=== PATIENT | male | born 1970 | race Two or more races ===

== ENCOUNTER 2022-02-01 12:36 | Emergency (ER) | payer MEDICAID, OTHER ==
[~2022-02-01] VITALS: Ht 182.9 cm; Wt 104.3 kg
[2022-02-01 12:45] VITALS: BP 127/80
--- NOTE | 2022-02-01 12:49 | NUR ---
PT AMBULATED TO LOBBY
--- NOTE | 2022-02-01 13:00 | NUR ---
51/M WALKED IN FOR COUGH ONSET 4 DAYS. DENIES FEVER OR PAIN AT THIS TIME. AAO4, AMBULATORY, VITALS STABLE.
--- NOTE | 2022-02-01 13:30 | NUR ---
PT CALLED X2 AT [facility]. NO ANSWER. PT LEFT BEFORE DC INSTRUCTIONS. NO IV PLACED.
== END 2022-02-01 13:30 | disposition home or self-care (01) ==
LOC: MED 12:36
DX: J06.9 Acute upper respiratory infection, unspecified (principal); E78.00 Pure hypercholesterolemia, unspecified; E03.9 Hypothyroidism, unspecified
CPT/HCPCS: 99281

== ENCOUNTER 2023-06-19 17:11 | Emergency (ER) | payer OTHER ==
[~2023-06-19] VITALS: Ht 182.9 cm; Wt 107.6 kg
[2023-06-19 17:15] VITALS: BP 150/96; PULSE 112; RESP 18; TEMP 98; O2SAT 95
[2023-06-19 17:53] LABS: BASOPHILS # (AUTO) 0.1 K/uL (0.00-0.22); BASOPHILS % (AUTO) 0.5 % (0.0-2.0); EOSINOPHILS # (AUTO) 0.1 K/uL (0-0.4); EOSINOPHILS % (AUTO) 0.4 % (0.0-4.0); HEMATOCRIT 44.5 % (36-52); HEMOGLOBIN 15.2 g/dL (12.0-18.0); LYMPHOCYTES # (AUTO) 1.1 K/uL (2.0-11.5); LYMPHOCYTES % (AUTO) 6.7 % (20.5-51.1); MEAN CORPUSCULAR HEMOGLOBIN 31 pg (27-31); MEAN CORPUSCULAR HGB CONC 34 g/dL (33-37); MEAN CORPUSCULAR VOLUME 91.4 fL (80-94); MONOCYTES # (AUTO) 0.8 K/uL (0.8-1.0); MONOCYTES % (AUTO) 4.5 % (1.7-9.3); NEUTROPHILS # (AUTO) 14.7 K/uL (1.8-7.7); NEUTROPHILS % (AUTO) 87.9 % (42.2-75.2); PLATELET COUNT (AUTO) 227 K/uL (140-450); RED BLOOD CELL COUNT(AUTO) 4.86 MIL/uL (4.20-6.10); RED CELL DISTRIBUTION WIDTH 13.2 % (11.6-13.7); WHITE BLOOD COUNT (AUTO) 16.8 K/uL (4.8-10.8)
[2023-06-19 18:06] LABS: ANION GAP 14.4 (8-16); CARBON DIOXIDE 27.1 mmol/L (21-32); CREATININE 1.3 mg/dL (0.6-1.3); POTASSIUM 3.5 mmol/L (3.5-5.1)
[2023-06-19 18:32] LABS: ALANINE AMINOTRANSFERASE 60 U/L (12-78); ALKALINE PHOSPHATASE 96 U/L (50-136); ASPARTATE AMINOTRANSFERASE 37 U/L (15-37); BILIRUBIN,DIRECT 0.2 mg/dL (0.0-0.3); THYROID STIMULATING HORMONE 1.51 uIU/mL (0.34-3.74); TOTAL PROTEIN, SERUM 7.9 g/dL (6.4-8.2)
[2023-06-19] MEDS ORDERED: AZIT250T4 PO (19:15)
[2023-06-19] MEDS ORDERED: AMOX1TAB8 PO (19:15)
[2023-06-19] MEDS: IBUPROFEN 600 MG TAB PO ONE (19:41)
[2023-06-19 19:44] VITALS: BP 125/91; PULSE 112; RESP 18; TEMP 99.7; O2SAT 96
== END 2023-06-19 19:44 | disposition home or self-care (01) ==
LOC: MED 17:11
DX: J18.1 Lobar pneumonia, unspecified organism (principal); I10 Essential (primary) hypertension; Z79.899 Other long term (current) drug therapy
CPT/HCPCS: 36415; 71045; 80048; 80076; 83880; 84443; 84484; 85025; 93005; 99285; Q0092